=== PATIENT | male | born 1955 | race Caucasian/White ===

== ENCOUNTER 2017-03-25 18:15 | Emergency (ER) | payer OTHER | END 2017-03-25 21:00 | disposition home or self-care (01) | LOC: D.ER 18:15 | DX: S80.01XA Contusion of right knee, initial encounter (principal); S90.01XA Contusion of right ankle, initial encounter; X58.XXXA Exposure to other specified factors, initial encounter; Y93.89 Activity, other specified; Y92.89 Other specified places as the place of occurrence of the external cause ==

== ENCOUNTER 2019-05-28 08:57 | Emergency (ER) | payer OTHER ==
[~2019-05-28] VITALS: Ht 167.6 cm; Wt 111.1 kg
[2019-05-28 08:59] VITALS: Ht 167.6 cm; Wt 111.1 kg
[2019-05-28 10:15] LABS: BASOPHILS 0.6 % (0-2); EOSINOPHILS 4.1 % (0-7); HEMATOCRIT 43.3 % (42.0-54.0); HEMOGLOBIN 14.6 g/dL (13.5-17.5); IMMATURE GRANULOCYTES 0.4 % (0-5); LYMPHOCYTES 27.4 % (15-50); MCH 30.9 pg (26.0-34.0); MCHC 33.7 g/dL (31.0-37.0); MCV 91.7 fL (80.0-100.0); MONOCYTES 6.1 % (2-11); NEUTROPHILS 61.4 % (40-80); PLATELET COUNT 190 10x3/uL (130-400); RBC 4.72 10x6/uL (4.20-6.10); RDW 12.2 % (11.5-14.5)
[2019-05-28 10:34] LABS: ALBUMIN 3.8 g/dL (3.4-5.0); ALKALINE PHOSPHATASE 131 U/L (46-116); ALT (SGPT) 46 U/L (10-68); BILIRUBIN - TOTAL 0.55 mg/dL (0.2-1.3); CALC OSMOLALITY 292 mosm/kg (275-300); CARBON DIOXIDE 30.1 mmol/L (21.0-32.0); CHLORIDE - SERUM 102 mmol/L (98-107); GLUCOSE 295 mg/dL (74-106); POTASSIUM - SERUM 4.4 mmol/L (3.5-5.1); PROTEIN - SERUM 7.1 g/dL (6.4-8.2); SODIUM 141 mmol/L (136-145); UREA NITROGEN 15 mg/dL (7-18); eGFR NON AFRICAN AMERICAN 80 mL/min (90-120)
[2019-05-28 10:44] LABS: CREATINE KINASE 65 UL (21-232); THYROID STIMULATING HORMONE 1.34 uIU/mL (0.36-3.74)
[2019-05-28] MEDS ORDERED: NORVASC10 MG PO (10:51)
[2019-05-28] MEDS ORDERED: GLUCOPHAGE500 MG PO (10:51)
[2019-05-28 12:41] VITALS: BP 163/73
== END 2019-05-28 12:42 | disposition home or self-care (01) ==
LOC: D.ER 08:57
PROVIDERS: Emergency Medicine
DX: E11.9 Type 2 diabetes mellitus without complications (principal); I10 Essential (primary) hypertension; R20.2 Paresthesia of skin

== ENCOUNTER 2019-11-01 14:22 | Emergency (ER) | payer OTHER ==
[~2019-11-01] VITALS: Ht 172.7 cm; Wt 107.7 kg
[~2019-11-01 14:22] MED LIST: GLUCOPHAGE500 MG PO; NORVASC10 MG PO
[2019-11-01 14:35] VITALS: Ht 172.7 cm; Wt 107.7 kg
[2019-11-01 14:58] LABS: BASOPHILS 0.3 % (0-2); HEMATOCRIT 41.2 % (42.0-54.0); HEMOGLOBIN 13.9 g/dL (13.5-17.5); IMMATURE GRANULOCYTES 0.2 % (0-5); LYMPHOCYTES 25.4 % (15-50); MCH 30.9 pg (26.0-34.0); MCHC 33.7 g/dL (31.0-37.0); MCV 91.6 fL (80.0-100.0); MEAN PLATELET VOLUME 10.7 fL (7.4-10.4); MONOCYTES 7.5 % (2-11); NEUTROPHILS 62.6 % (40-80); PLATELET COUNT 223 10x3/uL (130-400); RDW 12.4 % (11.5-14.5); WBC 9.5 10x3/uL (4.8-10.8)
[2019-11-01 15:11] LABS: CALC OSMOLALITY 280 mosm/kg (275-300); CALCIUM 8.9 mg/dL (8.5-10.1); CARBON DIOXIDE 27.5 mmol/L (21.0-32.0); CHLORIDE - SERUM 104 mmol/L (98-107); CREATININE - SERUM 1.2 mg/dL (0.6-1.3); SODIUM 138 mmol/L (136-145); UREA NITROGEN 19 mg/dL (7-18); eGFR NON AFRICAN AMERICAN 65 mL/min (90-120)
[2019-11-01 15:12] LABS: GLUCOSE 144 mg/dL (74-106)
[2019-11-01 15:27] LABS: ALKALINE PHOSPHATASE 72 U/L (30-120); ALT (SGPT) 29 U/L (10-68); BILIRUBIN - TOTAL 0.77 mg/dL (0.2-1.3); CKMB 0.5 U/L (0.0-3.6); CREATINE KINASE 75 UL (21-232); PROTEIN - SERUM 7.3 g/dL (6.4-8.2); TROPONIN-I < 0.017 ng/mL (0.000-0.060)
[2019-11-01 15:28] LABS: APTT 24.3 SECONDS (22.8-39.4); INR 1.3 (0.85-1.17); PROTIME 16.1 SECONDS (11.6-15.0)
[2019-11-01 15:40] LABS: MAGNESIUM - SERUM 1.7 mg/dL (1.8-2.4)
[2019-11-01 18:15] LABS: CKMB 0.4 U/L (0.0-3.6); CREATINE KINASE 76 UL (21-232)
[2019-11-01 18:18] LABS: TROPONIN-I < 0.017 ng/mL (0.000-0.060)
[2019-11-01 19:13] VITALS: BP 141/78
== END 2019-11-01 19:13 | disposition home or self-care (01) ==
LOC: D.ER 14:22
PROVIDERS: Family Medicine
DX: R55 Syncope and collapse (principal); E11.9 Type 2 diabetes mellitus without complications; I10 Essential (primary) hypertension; R51 Headache; R42 Dizziness and giddiness; Z79.84 Long term (current) use of oral hypoglycemic drugs

== ENCOUNTER 2020-12-17 08:56 | Emergency (ER) | payer MEDICARE ==
[~2020-12-17] VITALS: Ht 172.7 cm; Wt 109.1 kg
[2020-12-17 09:00] VITALS: BP 152/82; Ht 172.7 cm; Wt 109.1 kg
[2020-12-17 10:09] LABS: BASOPHILS 0.5 % (0-2); EOSINOPHILS 3.9 % (0-7); HEMATOCRIT 42.3 % (42.0-54.0); HEMOGLOBIN 13.9 g/dL (13.5-17.5); IMMATURE GRANULOCYTES 0.1 % (0-5); LYMPHOCYTE ABS# 1.92 10x3/uL (1.32-3.57); LYMPHOCYTES 22.1 % (15-50); MCH 30.8 pg (26.0-34.0); MCHC 32.9 g/dL (31.0-37.0); MCV 93.8 fL (80.0-100.0); MEAN PLATELET VOLUME 10.5 fL (7.4-10.4); MONOCYTES 9.7 % (2-11); NEUTROPHIL ABS# 5.55 10x3/uL (1.78-5.38); NEUTROPHILS 63.7 % (40-80); PLATELET COUNT 247 10x3/uL (130-400); RBC 4.51 10x6/uL (4.20-6.10); RDW 12.4 % (11.5-14.5); WBC 8.7 10x3/uL (4.8-10.8)
[2020-12-17 10:20] LABS: ANION GAP 12.9 mmol/L (8-16); APTT 27.5 SECONDS (22.8-39.4); CARBON DIOXIDE 26.4 mmol/L (21.0-32.0); CREATININE - SERUM 1.2 mg/dL (0.6-1.3); INR 1.44 (0.85-1.17); POTASSIUM - SERUM 4.3 mmol/L (3.5-5.1); PROTIME 16.3 SECONDS (11.6-15.0)
[2020-12-17 10:26] LABS: ALBUMIN 3.8 g/dL (3.4-5.0); BILIRUBIN - TOTAL 0.92 mg/dL (0.2-1.3); PROTEIN - SERUM 7.7 g/dL (6.4-8.2); URIC ACID 6.8 mg/dL (2.6-7.2)
[2020-12-17] MEDS ORDERED: CYCLOBENZAPRINE10 MG PO (11:16)
[2020-12-17] MEDS ORDERED: ACETAMINOPHEN500 M1 PO (11:16)
[2020-12-17] MEDS ORDERED: IBUPROFEN800 MG PO (11:16)
== END 2020-12-17 11:39 | disposition home or self-care (01) ==
LOC: D.ER 08:56
PROVIDERS: Family Medicine
DX: M79.661 Pain in right lower leg (principal); M79.10 Myalgia, unspecified site; E11.9 Type 2 diabetes mellitus without complications; Z79.84 Long term (current) use of oral hypoglycemic drugs

== ENCOUNTER → 2021-01-02 17:39 | Outpatient (CLI) | payer OTHER ==
[2020-12-17 09:00] VITALS: BMI 36.5
[~2021-01-02 17:39] MED LIST changes: +ACETAMINOPHEN500 M1 PO; +CYCLOBENZAPRINE10 MG PO; +IBUPROFEN800 MG PO
[2021-01-02 17:56] LABS: BASOPHILS 0.7 % (0-2); EOSINOPHILS 5.9 % (0-7); HEMATOCRIT 41.1 % (42.0-54.0); HEMOGLOBIN 13.4 g/dL (13.5-17.5); IMMATURE GRANULOCYTES 0.4 % (0-5); LYMPHOCYTE ABS# 2.07 10x3/uL (1.32-3.57); LYMPHOCYTES 24.5 % (15-50); MCH 30.7 pg (26.0-34.0); MCHC 32.6 g/dL (31.0-37.0); MCV 94.1 fL (80.0-100.0); MEAN PLATELET VOLUME 11.3 fL (7.4-10.4); MONOCYTES 11.6 % (2-11); NEUTROPHIL ABS# 4.81 10x3/uL (1.78-5.38); NEUTROPHILS 56.9 % (40-80); PLATELET COUNT 282 10x3/uL (130-400); RBC 4.37 10x6/uL (4.20-6.10); RDW 12.5 % (11.5-14.5); WBC 8.5 10x3/uL (4.8-10.8)
[2021-01-02 19:39] LABS: ERYTHROCYTE SEDIMENTATION RATE 16 mm/hr (0-20)
== END | disposition home or self-care (01) ==
LOC: D.LABREF 17:39
PROVIDERS: ATTEND Orthopaedic Surgery
DX: M79.661 Pain in right lower leg (principal)

== ENCOUNTER 2021-02-07 20:53 | Emergency (ER) | payer OTHER ==
[~2021-02-07] VITALS: Ht 172.7 cm; Wt 109.1 kg
[2021-02-07 20:56] VITALS: Ht 172.7 cm; Wt 109.1 kg
[2021-02-07 21:38] LABS: BASOPHILS 0.8 % (0-2); EOSINOPHILS 5.1 % (0-7); HEMATOCRIT 38.2 % (42.0-54.0); HEMOGLOBIN 12.7 g/dL (13.5-17.5); LYMPHOCYTES 28.2 % (15-50); MCH 30.3 pg (26.0-34.0); MCHC 33.1 g/dL (31.0-37.0); MCV 91.3 fL (80.0-100.0); MEAN PLATELET VOLUME 9.1 fL (7.4-10.4); MONOCYTES 9.7 % (2-11); NEUTROPHILS 56.2 % (40-80); PLATELET COUNT 244 10x3/uL (130-400); RBC 4.18 10x6/uL (4.20-6.10); RDW 13.2 % (11.5-14.5)
[2021-02-07 21:42] LABS: ANION GAP 15.4 mmol/L (8-16); CALCIUM 8.6 mg/dL (8.5-10.1); CREATININE - SERUM 2.7 mg/dL (0.6-1.3); POTASSIUM - SERUM 4.4 mmol/L (3.5-5.1)
[2021-02-07 21:53] LABS: BILIRUBIN - TOTAL 0.52 mg/dL (0.2-1.3); PROTEIN - SERUM 7.7 g/dL (6.4-8.2)
[2021-02-07] MEDS ORDERED: MIRALAX17 GM PO (22:19)
[2021-02-07 23:57] VITALS: BP 111/63
== END 2021-02-07 23:57 | disposition home or self-care (01) ==
LOC: D.ER 20:53
PROVIDERS: Family Medicine
DX: K59.00 Constipation, unspecified (principal); R10.30 Lower abdominal pain, unspecified; E11.9 Type 2 diabetes mellitus without complications; I10 Essential (primary) hypertension; Z79.84 Long term (current) use of oral hypoglycemic drugs

== ENCOUNTER 2021-02-23 09:13 | Day surgery (SDC) | payer OTHER ==
[2021-02-22 10:19] LABS: BASOPHILS 1.5 % (0-2); EOSINOPHILS 5.7 % (0-7); HEMATOCRIT 38.6 % (42.0-54.0); HEMOGLOBIN 12.7 g/dL (13.5-17.5); LYMPHOCYTES 25.5 % (15-50); MCH 30.3 pg (26.0-34.0); MCHC 32.8 g/dL (31.0-37.0); MCV 92.3 fL (80.0-100.0); MEAN PLATELET VOLUME 8.9 fL (7.4-10.4); MONOCYTES 7.4 % (2-11); NEUTROPHILS 59.9 % (40-80); PLATELET COUNT 210 10x3/uL (130-400); RBC 4.19 10x6/uL (4.20-6.10); RDW 13.1 % (11.5-14.5)
[2021-02-22 10:40] LABS: CALCIUM 8.9 mg/dL (8.5-10.1); CARBON DIOXIDE 23.6 mmol/L (21.0-32.0); CREATININE - SERUM 1.4 mg/dL (0.6-1.3); POTASSIUM - SERUM 5.6 mmol/L (3.5-5.1)
[~2021-02-23] VITALS: Ht 172.7 cm; Wt 97.5 kg
[~2021-02-23 09:13] MED LIST changes: +FARXIGA10 MG PO; +GLUCOPHAGE1000 MG PO; +HCTZ25 MG PO; +LIPITOR10 MG PO; +MIRALAX17 GM PO; +VOLTAREN75 MG PO; +ZESTRIL40 MG PO
[2021-02-23 11:26] VITALS: BP 137/67; Ht 172.7 cm; Wt 97.5 kg
--- NOTE | 2021-02-23 19:04 | NUR ---
STATES PAIN DECREASED TO 2/10 AFTER NORCO. DISCHARGE INSTRUCTIONS GIVEN AND PT VERBALZIED AN UNDESTANDING. IV D/C'D WITH CANNUL INTACT, PRESSURE HELD AND DRSG PLACED. DISCHARGED HOME IN STABLE CONDITION AND WITHOUT C/O
--- NOTE | 2021-02-24 08:20 | OP ---
PATIENT NAME: ONEYDA FLORES MEDICAL RECORD: [id number] :55 LOCATION:D[facility] ADMISSION DATE: SURGEON: TREVER CRUZ DO DATE OF OPERATION: 02/23/2021 PROCEDURE PERFORMED: Removal of foreign body of the right lower extremity. PREOPERATIVE DIAGNOSIS: Right lower extremity foreign body. POSTOPERATIVE DIAGNOSIS: Right lower extremity foreign body. INDICATIONS: Mr. Flores is a 65-year-old male who has had a foreign body in his right lower extremity for approximately 10 years. He says he got it when he was mowing some time, it appeared to be a large piece of wire or a metal bailey that was in there just over the anterior aspect of his fibula about the mid to distal third. He wanted it removed as it started bothering him. I informed him of the risks of this including infection, bleeding, damage to nerves and vessels in the area continued pain drop foot, need for amputation, even and he is aware of all that and he signed a consent. SURGEON: Trever Cruz DO DESCRIPTION OF PROCEDURE: The patient was taken to the operative suite, laid in supine position, general anesthetic and LMA was placed and given 2 grams of Ancef preoperatively. The right lower extremity was then prepped and draped in sterile fashion. A timeout was performed. Everyone was in agreeance with the correct side, site, patient and procedure. I then used the C-arm brought in and got an x-ray to get where the metallic piece was. I then made a small incision over really centered between the fibula and the tibia and made blunt dissection down with Army-Spearfish's and a periosteal elevator to the foreign body. I then removed it with a Lilibeth. The area was then irrigated and any bleeding was coagulated with a Bovie. I then closed the site with 2-0 Vicryl in inverted interrupted fashion, 4-0 Monocryl ran on the skin. He was then dressed with Steri-Strips, Adaptic, 4 x 4, cast padding, Martín wrap from the foot up. He was awakened and taken to recovery in stable condition. BLOOD LOSS: Minimal. COMPLICATIONS: None. TRANSINT:[id number] Voice Confirmation ID: [id number] DOCUMENT ID: [id number] TREVER CRUZ, at 0820 CC: [id number] DICTATION DATE: 02/23/21 1754 DOCTOR OF NURSE ANESTHESIA: 02/24/21 0121 [facility] [place] 02/23/21 [facility] [address] [place] [address]
== END 2021-02-23 16:10 | disposition home or self-care (01) ==
LOC: D.OPS 09:13
PROVIDERS: Anesthesiology; ATTEND Orthopaedic Surgery
DX: S80.851A Superficial foreign body, right lower leg, initial encounter (principal); M79.604 Pain in right leg